=== PATIENT | female | born 1955 | race Caucasian/White ===

== ENCOUNTER → 2016-11-12 | Outpatient (CLI) | payer BC ==
[2016-11-12 12:01] LABS: Anion Gap 12 mmol/L; Blood Urea Nitrogen 18 mg/dL (7-17); Carbon Dioxide 28 mmol/L (22-30); Chloride 104 mmol/L (98-107); Magnesium 1.9 mg/dL (1.6-2.3); Non-African American GFR(MDRD) >60 (>60 ml/min/1.73 sqM); Potassium 5.3 mmol/L (3.5-5.1); Sodium 144 mmol/L (137-145)
== END | disposition home or self-care (01) ==
LOC: LABWHC1 11:18
PROVIDERS: ATTEND Internal Medicine Clinical Cardiac Electrophysiology
DX: I48.2 Chronic atrial fibrillation (principal); Z51.81 Encounter for therapeutic drug level monitoring
CPT/HCPCS: 36415; 80051; 82565; 83735; 84520

== ENCOUNTER → 2016-12-16 | Outpatient (CLI) | payer BC ==
[2016-12-16 12:54] LABS: Anion Gap 11 mmol/L; Blood Urea Nitrogen 17 mg/dL (7-17); Calcium 9.9 mg/dL (8.4-10.2); Carbon Dioxide 27 mmol/L (22-30); Chloride 103 mmol/L (98-107); Glucose 108 mg/dL (74-99); Non-African American GFR(MDRD) >60 (>60 ml/min/1.73 sqM); Potassium 5.1 mmol/L (3.5-5.1); Sodium 141 mmol/L (137-145)
== END ==
LOC: LABWHC1 11:10
PROVIDERS: ATTEND Internal Medicine Clinical Cardiac Electrophysiology
DX: I48.91 Unspecified atrial fibrillation (principal); Z51.81 Encounter for therapeutic drug level monitoring; Z79.899 Other long term (current) drug therapy
CPT/HCPCS: 36415; 80048

== ENCOUNTER → 2017-04-28 | Outpatient (CLI) | payer BC ==
[2017-04-28 11:15] LABS: Anion Gap 10 mmol/L; Blood Urea Nitrogen 16 mg/dL (7-17); Calcium 9.5 mg/dL (8.4-10.2); Carbon Dioxide 29 mmol/L (22-30); Chloride 104 mmol/L (98-107); Cholesterol 164 mg/dL (<200); Glucose 104 mg/dL (74-99); HDL Cholesterol 40 mg/dL (40-60); Magnesium 1.8 mg/dL (1.6-2.3); Non-African American GFR(MDRD) >60 (>60 ml/min/1.73 sqM); Potassium 5.3 mmol/L (3.5-5.1); Sodium 143 mmol/L (137-145)
== END | disposition home or self-care (01) ==
LOC: LABWHC1 10:25
PROVIDERS: ATTEND Internal Medicine Clinical Cardiac Electrophysiology
DX: I48.91 Unspecified atrial fibrillation (principal); I10 Essential (primary) hypertension
CPT/HCPCS: 36415; 80048; 80061; 83735

== ENCOUNTER → 2017-11-04 | Outpatient (CLI) | payer BC ==
[2017-11-04 11:19] LABS: Anion Gap 10 mmol/L; Blood Urea Nitrogen 17 mg/dL (7-17); Calcium 9.9 mg/dL (8.4-10.2); Carbon Dioxide 30 mmol/L (22-30); Chloride 103 mmol/L (98-107); Glucose 108 mg/dL (74-99); Magnesium 1.9 mg/dL (1.6-2.3); Potassium 5.3 mmol/L (3.5-5.1); Sodium 143 mmol/L (137-145)
== END | disposition home or self-care (01) ==
LOC: LABWHC1 10:37
PROVIDERS: ATTEND Internal Medicine Clinical Cardiac Electrophysiology
DX: I48.91 Unspecified atrial fibrillation (principal)
CPT/HCPCS: 36415; 80048; 83735; 84443

== ENCOUNTER → 2018-06-15 | Outpatient (CLI) | payer MEDICARE ==
[2018-06-15 11:59] LABS: Anion Gap 7 mmol/L; Blood Urea Nitrogen 19 mg/dL (7-17); Calcium 9.6 mg/dL (8.4-10.2); Carbon Dioxide 30 mmol/L (22-30); Chloride 104 mmol/L (98-107); Glucose 115 mg/dL (74-99); Potassium 5.3 mmol/L (3.5-5.1); Sodium 141 mmol/L (137-145)
== END | disposition home or self-care (01) ==
LOC: LABWHC1 10:32
PROVIDERS: ATTEND Internal Medicine Clinical Cardiac Electrophysiology
DX: I48.2 Chronic atrial fibrillation (principal); Z51.81 Encounter for therapeutic drug level monitoring
CPT/HCPCS: 36415; 80048; 83735

== ENCOUNTER → 2018-09-29 | Outpatient (CLI) | payer MEDICARE ==
[2018-09-29 12:53] LABS: HCT 44.1 % (34.0-46.0); HGB 14.3 gm/dL (11.4-16.0); MCH 27.9 pg (25.0-35.0); MCHC 32.4 g/dL (31.0-37.0); MCV 86.2 fL (80.0-100.0); Mean Platelet Volume 7.6; Platelet Count 255 k/uL (150-450); RBC 5.12 m/uL (3.80-5.40); RDW 13.4 % (11.5-15.5); WBC 8.2 k/uL (3.8-10.6)
[2018-09-29 13:04] LABS: Anion Gap 7 mmol/L; Blood Urea Nitrogen 21 mg/dL (7-17); Carbon Dioxide 29 mmol/L (22-30); Chloride 105 mmol/L (98-107); Glucose 104 mg/dL (74-99); Potassium 5.1 mmol/L (3.5-5.1); Sodium 141 mmol/L (137-145)
== END | disposition home or self-care (01) ==
LOC: LABPAT 11:24
PROVIDERS: ATTEND Internal Medicine Clinical Cardiac Electrophysiology
DX: Z01.812 Encounter for preprocedural laboratory examination (principal); I48.0 Paroxysmal atrial fibrillation; I27.20 Pulmonary hypertension, unspecified
CPT/HCPCS: 36415; 80051; 82565; 82947; 84520; 85027

== ENCOUNTER 2018-10-12 05:50 | Day surgery (SDC) | payer MEDICARE ==
[2018-10-08 15:06] VITALS: BMI 36.0
[2018-10-12] MEDS ORDERED: fentaNYL (PF) 50 MCG/ML 2 ML AMP IV PRN (05:54)
[2018-10-12] MEDS ORDERED: LACTATED RINGERS 1,000 ML IV SCH (05:54)
[2018-10-12] MEDS ORDERED: MIDAZOLAM (PF) 2 MG/2 ML VIAL IV PRN (05:54)
[2018-10-12] MEDS ORDERED: SODIUM CHLORIDE 0.9% 1,000 ML IV SCH (05:54)
[2018-10-12] MEDS ORDERED: DEXAMETHASONE SOD PHOSPHATE 10 MG/ML 1 ML VIAL IV ONE (05:54)
[2018-10-12 06:33] LABS: INR 2.4 (<1.2); Prothrombin Time 23.4 sec (9.0-12.0)
[2018-10-12] MEDS ORDERED: SUCCINYLCHOLINE CHLORIDE 100 MG/5 ML SYR IV ONE (07:18)
[2018-10-12] MEDS ORDERED: ROCURONIUM BROMIDE 10 MG/ML 10 ML VIAL IV ONE (07:18)
[2018-10-12] MEDS ORDERED: NEOSTIGMINE 1 MG/ML 10 ML VIAL ONE (07:18)
[2018-10-12] MEDS ORDERED: ePHEDrine SULFATE/0.9% NACL/PF 50 MG/5 ML SYRINGE IV ONE (07:18)
[2018-10-12] MEDS ORDERED: LIDOCAINE 1% INJ 10MG/ML (20 ML MDV) ONE (07:18)
[2018-10-12] MEDS ORDERED: ISOPROTERENOL 250 MCG/1.25 ML SYR IV ONE (07:18)
[2018-10-12] MEDS ORDERED: IV FLUID CONTINUATION 950 ML IV ONE (07:18)
[2018-10-12] MEDS ORDERED: HEPARIN SODIUM,PORCINE 10,000 UNIT/ML 1 ML VIAL ONE (07:18)
[2018-10-12] MEDS ORDERED: FUROSEMIDE 10 MG/ML 2 ML VIAL ONE (07:18)
[2018-10-12] MEDS ORDERED: PROTAMINE SULFATE 10 MG/ML 5 ML VIAL IV ONE (07:18)
[2018-10-12] MEDS ORDERED: fentaNYL (PF) 50 MCG/ML 2 ML AMP ONE (07:18)
[2018-10-12] MEDS ORDERED: PROPOFOL 10 MG/ML 20 ML VIAL IV ONE (07:18)
[2018-10-12] MEDS ORDERED: GLYCOPYRROLATE 0.2 MG/ML 2 ML VIAL ONE (07:18)
[2018-10-12] MEDS ORDERED: MEPERIDINE 50 MG/ML SYRINGE ONE (07:18)
[2018-10-12] MEDS ORDERED: MIDAZOLAM 2 MG/2 ML VIAL ONE (07:18)
[2018-10-12] MEDS ORDERED: HEPARIN SOD,PORK IN 0.45% NACL 25,000 UNIT in 0.45% NACL 1 250ML.BAG IV ONE (08:05)
[2018-10-12] MEDS ORDERED: LIDOCAINE 1% INJ 10MG/ML (20 ML MDV) SQ ONE (08:06)
[2018-10-12] MEDS ORDERED: HEPARIN SODIUM (1,000 UNIT/ML) 1,000 UNIT in SODIUM CHLORIDE 0.9% 1,000 ML IRRIGATION ONE ×4 (08:09)
[2018-10-12] MEDS ORDERED: ACETAMINOPHEN IV (For NPO) 1,000 MG in EMPTY BAG 1 BAG IVPB ONE (11:55)
[2018-10-12] MEDS ORDERED: HYDROcodone/APAP 5-325MG 1 EACH TAB PO PRN (11:55)
--- NOTE | 2018-10-12 12:04 | P.PRLE ---
RE: Danielle Menard Dear Juan Lorenzo Derian has had breakthrough episodes of atrial fibrillation. She had 2 A. fib ablations of the [facility] almost 10 years back and since then she has been on dofetilide since she continued to have persistent atrial fibrillation. She had done very well on dofetilide but more recently I noticed that 100 her monitor she would experience breakthrough episodes of atrial fibrillation. This was a recent finding I performed a map of the left atrium and she underwent successful ablation of 2 areas which had shown recovery from previous ablations, namely the left atrial roof and the anterior of the left superior and inferior veins in the groove between the left atrial appendage and the left-sided veins. Thereafter atrial fibrillation could not be induced Hopefully she maintains sinus rhythm on dofetilide She will continue and granulation lifelong I also performed a right heart cath to measure her PA pressures since she has a past history of pulmonary hypertension. She has mildly elevated PA pressures of around 35-40 mmHg Left atrial pressure of 33 mmHg Right atrial pressures of 14 mmHg She will continue with her current medications without any changes Since she is on dofetilide she cannot be on hydrochlorothiazide or the thiazide diuretics Thank you for entrusting me with the care of the patient Warm regards Sincerely Yuri Alonzo
[2018-10-12] MEDS ORDERED: IV FLUID CONTINUATION 1,000 ML IV ONE (13:03)
--- NOTE | 2018-10-12 13:21 | CE ---
CARDIAC ELECTROPHYSIOLOGY REPORT This is a 63-year-old female with a history of persistent atrial fibrillation who has undergone 2 A fib ablations at the [facility] almost a decade back. Thereafter, she remained in atrial fibrillation and therefore I treated her with dofetilide and she has done very well for many, many years. More recently, a follow- up Holter monitor showed breakthrough episodes of atrial fibrillation and therefore I brought her in for an EP study as well as right heart catheterization since she carries a diagnosis of pulmonary hypertension. Patient was brought to the EP lab in a fasting state. Written informed consent was obtained prior to the procedure. The procedure was performed under general anesthesia. Venous sheaths were placed in the right and left femoral veins as well as an arterial sheath in the right femoral artery for continuous hemodynamic monitoring and sampling. Her vitals remained stable through the procedure. This was removed at the end of the procedure. She was in sinus rhythm at the start of the study. Sinus cycle length 908 milliseconds. KY interval 166 milliseconds, QRS 78 milliseconds, QT 434 milliseconds. The baseline AH interval 84 milliseconds. Baseline HV interval 44 milliseconds. First right heart catheterization was performed. A [place]-Lori catheter was placed in the pulmonary artery. On recovery, wedge pressure was 28/12/17 mmHg. PA pressures 39/15/26 mmHg. RV 42/7/22 mmHg. Right atrium 14/8/12 mmHg. IVC 30/9/12 mmHg. This was consistent with mild pulmonary hypertension. The catheter was removed and diagnostic and mapping EP catheters were placed. Sinus node recovery time at 600, 500 milliseconds were 1222 and 1280 milliseconds. Corresponding corrected sinus node recovery times were within normal limits. AV node Wenckebach block 370 milliseconds, VA Wenckebach block greater than 600 milliseconds. Isuprel was used for induction of atrial tachycardia and atrial fibrillation. Atrial extra stimulation was performed from the coronary sinus. Atrial fibrillation could not be induced. However, later atrial fibrillation was very easily inducible when a PentaRay catheter was placed in the left superior vein as well as when the mapping and ablation catheter was in contact with the roof of the left atrium. This induced the atrial tachycardia, however, she would degenerate the atrial tachycardia which appeared to be organized. Based on the surface leads, but intracardiac electrograms suggested that this was really atrial fibrillation. Therefore, 3D voltage map of the left atrium was performed. A PentaRay catheter was placed in the left atrium and voltage map was made. The right-sided veins were completely quiescent. The left-sided veins were also quiescent. The posterior wall was quiescent. However, the groove between the left-sided veins and the left atrial appendage showed atrial electrograms and when a brief map of the irregular atrial tachycardia was performed, the earliest activation was in this region. This corresponded to the area where there was a gap in the roof line and also where the catheter induced the atrial fibrillation. Mapping of the left atrial body suggested the roof had a gap in the mid section, but on closer examination even though the voltage was low with detailed mapping. The roof had actually recovered and contact with the ablation catheter at several sites even with very low voltage of less than 0.3 mV induced atrial fibrillation repeatedly and pressure application here resulted in termination of atrial fibrillation. Therefore, 2 areas were targeted for ablation, #1 the anterior margin of the left-sided pulmonary veins in the ridge between the left atrial appendage and the left-sided veins. RF ablation was applied here and the veins isolated antral level at the level of the ridge. Good contact force and good power was used of 35 erickson. Next a roof line somewhat anterior was made. While ablating this region, with contact atrial fibrillation was repeatedly induced and it was finally terminated once the line was complete. This line was interrogated with 100% grid and was a complete anatomic line. Mapping along the line did not reveal any further electrograms and contact in the roof area did not result in any more atrial fibrillation which was a sharp contrast before this ablation. Heparin was used through the procedure. This was stopped and catheters removed from the left atrium. Catheters were placed in the high right atrium, coronary sinus, His bundle area and the RV. VA Wenckebach block was greater than 600 milliseconds, AV node Wenckebach block 370 milliseconds, AH interval 84 milliseconds, HV interval 44 milliseconds. Sinus node recovery times were performed. Atrial extra stimulation was performed. Patient tolerated the procedure well without any acute complications. RESULT: 1. Successful re-isolation of the left-sided veins both superior and inferior along the ridge anteriorly. 2. Linear ablation in the roof of the left atrium. Atrial fibrillation could not be induced thereafter. PLAN: Continue anticoagulation, continue dofetilide. MMODL / IJN: [id number] /
[2018-10-12] MEDS: DOFETILIDE 500 MCG CAP PO SCH (17:19)
[2018-10-12] MEDS ORDERED: ACETAMINOPHEN TAB 325 MG TAB PO PRN (18:00)
[2018-10-13] MEDS: DOFETILIDE 500 MCG CAP PO SCH (05:52)
[2018-10-13] MEDS ORDERED: LISINOPRIL 20 MG TAB PO SCH (09:00)
[2018-10-13] MEDS ORDERED: METOPROLOL SUCCINATE (ER) 50 MG TAB.ER.24H PO SCH (09:00)
[2018-10-13 11:33] VITALS: BP 144/79; PULSE 70; RESP 15; TEMP 98.6
[2018-10-13] MEDS ORDERED: MAGNESIUM OXIDE 400 MG TAB PO SCH (12:00)
--- NOTE | 2018-10-13 12:32 | P.DS ---
Providers Attending physician: Yuri Alonzo Primary care physician: [facility] Course: Patient is doing very well post A. fib ablation. Mild sore throat but no swallowing difficulty no fever chills no cough expectoration no chest pain no dizziness lightheadedness no palpitations She's been ambulating in the room and into the bathroom Vitals are stable Blood pressure 147/78 mmHg pulse rate in the 70s afebrile 98.6F normal respirations Breath sounds are clear no rhonchi no crackles Heart sounds are normal normal S1 normal S2 no murmurs or gallops no rub Abdomen soft nontender Extremities warm no edema groins of healed well Impression Breakthrough episodes of atrial fibrillation on dofetilide 500 g twice daily Today her absolute QT interval less than 450 ms She underwent ablation along the anterior margin of the left pulmonary veins in between the left atrial appendage and the left pulmonary veins Atrial fibrillation was easily inducible with catheter contact in the roof. Catheter contact also terminate this atrial fibrillation Successful roofline with termination of the tachycardia and A. fib was rendered noninducible Plan continue anticoagulation lifelong continue dofetilide continue all other cardiac medications and follow-up with me in about 2 weeks Home today Patient Condition at Discharge: Stable Plan - Discharge Summary Discharge Rx Participant: Yes New Discharge Prescriptions: Continue RX: Metoprolol Succinate [Toprol XL] 50 mg PO DAILY RX: Dofetilide [Tikosyn] 500 mcg PO BID RX: Warfarin [Coumadin] 2.5 mg PO SUWETH RX: Lisinopril [Zestril] 30 mg PO DAILY RX: Magnesium Chloride [Mag64] 64 mg PO DAILY RX: Iron 28 mg PO DAILY RX: Warfarin [Coumadin] 3.75 mg PO [facility] Discharge Medication List RX: Dofetilide [Tikosyn] 500 mcg PO BID 06/12/16 [History] RX: Iron 28 mg PO DAILY 06/12/16 [History] RX: Lisinopril [Zestril] 30 mg PO DAILY 06/12/16 [History] RX: Magnesium Chloride [Mag64] 64 mg PO DAILY 06/12/16 [History] RX: Metoprolol Succinate [Toprol XL] 50 mg PO DAILY 06/12/16 [History] RX: Warfarin [Coumadin] 2.5 mg PO SUWETHFR 06/12/16 [History] RX: Warfarin [Coumadin] 3.75 mg PO TUSA 10/08/18 [History] Follow up Appointment(s)/Referral(s): Yuri Alonzo MD [STAFF PHYSICIAN] - 10/22/18 (Follow for a groin check in 1-2 weeks and follow with Dr. Adkins in about 3-4 months again) Patient Instructions/Handouts: Electrophysiology Study (DC) Activity/Diet/Wound Care/Special Instructions: Post EP study - Ablation instructions 1. Keep access sites dry for 2 days. 2. No heavy lifting or straining for 2 days. 3. Avoid bending the hips repeatedly for 2 days. 4. You may go up and down stairs slowly Call if the following is noted 1. Bleeding, increasing swelling or pain at the access sites. 2. Increasing chest discomfort, especially upon taking a deep breath. 3. Increasing shortness of breath, at rest or with exertion. 4. Undue cough / phlegm 5. Difficulty or pain while swallowing. 6. Pain or change in color in the extremities. 7. Fever, chills, rigors. 8. Increasing headache or neurologic symptoms. 9. Dizziness, fainting, palpitations Continue warfarin continue dofetilide Continue all cardiac medications unchanged Discharge Disposition: HOME SELF-CARE
[2018-10-13] MEDS ORDERED: WARFARIN 7.5 MG TAB PO SCH (18:00)
[2018-10-14] MEDS ORDERED: WARFARIN 2.5 MG TAB PO SCH (18:00)
== END 2018-10-13 12:35 | disposition home or self-care (01) ==
LOC: CATHEP 05:50 → 1SOBS 11:37 → CATHEP 10-13 12:35
PROVIDERS: ATTEND Internal Medicine Clinical Cardiac Electrophysiology
DX: I48.0 Paroxysmal atrial fibrillation (principal); I27.20 Pulmonary hypertension, unspecified; I10 Essential (primary) hypertension; I08.1 Rheumatic disorders of both mitral and tricuspid valves; G47.33 Obstructive sleep apnea (adult) (pediatric); Z88.5 Allergy status to narcotic agent; Z79.01 Long term (current) use of anticoagulants; Z79.899 Other long term (current) drug therapy; Z88.8 Allergy status to other drugs, medicaments and biological substances
CPT/HCPCS: 93656; 93451; 93623; 93662; 93613; 85347; 85610; C1769 ×6; C1894 ×2; C1730; C1731; C1759; C1893; C1732; J2250; J2720; J1644 ×3; J1940; J2710; J2175; J2001; J3010; J0330; J2704

== ENCOUNTER → 2018-12-24 | Outpatient (CLI) | payer MEDICARE ==
--- NOTE | 2018-12-25 09:27 | MM ---
Reason for exam: screening (asymptomatic). Last mammogram was performed 7 years and 2 months ago. History: Patient is postmenopausal. Family history of breast cancer in aunt. Took estrogen for 1 year. Took progesterone for 1 year. Physical Findings: A clinical breast exam by your physician is recommended on an annual basis and results should be correlated with mammographic findings. MG 3D Screening Mammo W/Cad Bilateral CC and MLO view(s) were taken. Prior study comparison: November 05, 2011, bilateral digital screening mammo w/CAD. June 07, 2010, bilateral digital screening mammogram. The breast tissue is heterogeneously dense. This may lower the sensitivity of mammography. Benign appearing bilateral calcifications. No suspicious abnormality. No significant changes when compared with prior studies. ASSESSMENT: Benign, BI-RAD 2 RECOMMENDATION: Routine screening mammogram of both breasts in 1 year.
== END ==
LOC: RADMAMWWP 14:19
PROVIDERS: ATTEND Internal Medicine
DX: Z12.31 Encounter for screening mammogram for malignant neoplasm of breast (principal)
CPT/HCPCS: 77063; 77067

== ENCOUNTER → 2019-02-08 | Outpatient (CLI) | payer MEDICARE ==
[2019-02-08 18:24] LABS: Anion Gap 5.1 mmol/L (4.00-12.00); Calcium 9.5 mg/dL (8.7-10.3); Carbon Dioxide 25.9 mmol/L (21.6-31.8); Magnesium 1.9 mg/dL (1.5-2.4); Potassium 4.3 mmol/L (3.5-5.5)
== END | disposition home or self-care (01) ==
LOC: LABWHC1 11:26
PROVIDERS: ATTEND Nurse Practitioner Adult Health
DX: I10 Essential (primary) hypertension (principal)
CPT/HCPCS: 36415; 80048; 83735

== ENCOUNTER → 2019-08-02 | Outpatient (CLI) | payer MEDICARE ==
[2019-08-02 15:50] LABS: African American GFR (CKD) 104.6 (60.0-200.0); Anion Gap 6.3 mmol/L (4.00-12.00); BUN/Creat Ratio 25.71 Ratio (12.00-20.00); Calcium 10.1 mg/dL (8.7-10.3); Carbon Dioxide 29.7 mmol/L (21.6-31.8); Magnesium 1.8 mg/dL (1.5-2.4); Non-African American GFR(CKD) 90.3 (60.0-200.0); Potassium 5.4 mmol/L (3.5-5.5)
== END | disposition home or self-care (01) ==
LOC: LABWHC1 10:20
PROVIDERS: ATTEND Physician Assistant
DX: I48.91 Unspecified atrial fibrillation (principal)
CPT/HCPCS: 36415; 80048; 83735

== ENCOUNTER 2019-12-23 05:51 | Day surgery (SDC) | payer MEDICARE ==
[2019-12-20 10:35] VITALS: BMI 35.8
[~2019-12-23 05:51] MED LIST: LACTATED RINGERS 1,000 ML IV SCH; SODIUM CHLORIDE 0.9% 1,000 ML IV SCH
[2019-12-23 06:36] LABS: Basophils % (A) 0 %; Eosinophils # (A) 0.1 k/uL (0-0.7); Eosinophils % (A) 1 %; HCT 42.8 % (34.0-46.0); HGB 14.2 gm/dL (11.4-16.0); Lymphocytes # (A) 2.5 k/uL (1.0-4.8); Lymphocytes % (A) 25 %; MCHC 33.2 g/dL (31.0-37.0); MCV 84.3 fL (80.0-100.0); Mean Platelet Volume 7.9; Monocytes # (A) 0.7 k/uL (0-1.0); Monocytes % (A) 6 %; Neutrophils # (A) 6.5 k/uL (1.3-7.7); Neutrophils % (A) 65 %; Platelet Count 251 k/uL (150-450); RBC 5.08 m/uL (3.80-5.40); RDW 13.1 % (11.5-15.5); WBC 10.1 k/uL (3.8-10.6)
[2019-12-23 06:43] VITALS: RESP 16; TEMP 97.9
[2019-12-23 06:47] LABS: African American GFR (CKD) >90 (>60 ml/min/1.73 sqM); Anion Gap 10 mmol/L; Blood Urea Nitrogen 19 mg/dL (7-17); Calcium 9.4 mg/dL (8.4-10.2); Carbon Dioxide 23 mmol/L (22-30); Chloride 107 mmol/L (98-107); Glucose 136 mg/dL (74-99); Non-African American GFR(CKD) >90 (>60 ml/min/1.73 sqM); Potassium 4.2 mmol/L (3.5-5.1); Sodium 140 mmol/L (137-145)
[2019-12-23 06:56] LABS: INR 2.2 (<1.2); Prothrombin Time 21.5 sec (9.0-12.0)
[2019-12-23] MEDS ORDERED: PROPOFOL 10 MG/ML 20 ML VIAL IV ONE (06:59)
[2019-12-23] MEDS ORDERED: HYDROmorphone (PF) 1 MG/ML ONE (06:59)
[2019-12-23] MEDS ORDERED: MIDAZOLAM 2 MG/2 ML VIAL ONE (06:59)
[2019-12-23] MEDS ORDERED: fentaNYL (PF) 50 MCG/ML 2 ML AMP ONE (06:59)
[2019-12-23] MEDS ORDERED: ceFAZolin 1,000 MG in SODIUM CHLORIDE 0.9% IRRIGATIO 250 ML IRRIGATION ONE (07:00)
[2019-12-23] MEDS ORDERED: IOPAMIDOL-370 50ML BTL INJ ONE (07:15)
[2019-12-23] MEDS ORDERED: LIDOCAINE 1% INJ 10MG/ML (20 ML MDV) ONE ×2 (07:25→09:33)
[2019-12-23] MEDS ORDERED: LIDOCAINE 1% INJ 10MG/ML (20 ML MDV) SQ ONE ×4 (07:45→09:34)
[2019-12-23] MEDS ORDERED: SODIUM CHLORIDE 0.9% 500 ML 500 ML IV ONE (09:43)
[2019-12-23] MEDS ORDERED: ACETAMINOPHEN TAB 325 MG TAB PO PRN (10:06)
[2019-12-23] MEDS ORDERED: ACETAMINOPHEN IV (For NPO) 1,000 MG in EMPTY BAG 1 BAG IVPB ONE (10:30)
--- NOTE | 2019-12-23 11:02 | CE ---
CARDIAC ELECTROPHYSIOLOGY REPORT Danielle Menard, a 64-year-old female with tachybrady syndrome with atrial fibrillation with RVR and with long sinus pauses up to 6 to 7 seconds with associated dizziness and vision changes. She complained of palpitations during atrial fibrillation with RVR. She has failed dofetilide. She has undergone atrial fibrillation ablations, two at [facility] and one at [facility]. Patient was brought in for a biventricular pacemaker implantation. She has normal LV function, but her RVSP is elevated. She has moderate MR. Please see full dictation of the right heart catheterization performed prior to starting the pacemaker implant separately. The left pectoral area was prepped and draped as per protocol and 1% lidocaine was used for local anesthesia. IV antibiotics were administered. A 4 cm incision was made parallel to the deltopectoral groove, about 1.5 cm medial to it. The incision was carried down to the level of the pectoralis muscle. A subfascial pocket was made. Hemostasis was assured. The left axillary vein was accessed at 3 separate points under fluoroscopy and via appropriately-sized introducer sheaths. Three leads were positioned. The atrial lead was model #5076, 52 cm length and serial #[id number]. The patient was in atrial fibrillation during the implant. Pacing impedance 627 ohms and 0.75 V. Ten volt test is negative. This was a screw-in lead and it screwed in the right atrial appendage and the lead was stable. The RV lead was a passive lead Medtronic model #4074, 58 cm in length and serial #[id number]. This was positioned in the RV apex. R-waves 17 mV, pacing impedance 1216 ohms, pacing threshold 0.5 V at 0.4 milliseconds. Ten volt test is negative. The third lead was a Medtronic model #3830, 69 cm in length and serial #[id number]. This was screwed in the His bundle area. Nonselective pacing was observed. QRS width of about 103 to 108 milliseconds with selective pacing at very low thresholds, very low outputs. Loss of capture occurred at 0.6 V at 1 millisecond. Pacing impedance 770 ohms. The leads are secured to the underlying pectoralis fascia using 2 nonabsorbable sutures. Pocket was irrigated with antibiotic solution. Leads were connected to the generator (Medtronic HISTOTECHNOLOGIST-P, [id number] Debbie MRI. The leads and generator were then placed in subfascial pocket. The wound was closed in 3 layers and dressed per protocol. LEFT UPPER EXTREMITY VENOGRAM: Prior to starting the implant, a venogram of the left upper extremity was performed and 15 mL of dye was injected which opacified the axillary vein and subclavian veins very well and they were found to be patent widely patent. RIGHT HEART CATHETERIZATION: The patient has pulmonary hypertension with PA pressures in the mid 50s prior to starting the implant. The right heart catheterization was performed with a [place]-Lori catheter via the subclavian vein. When access was obtained, a sheath was placed and [place]-Lori catheter was placed in the right heart. The PA pressures were 66/10/40 mmHg. Pulmonary capillary wedge pressures were 35/6/17 mmHg. The central PA pressures are 68/9/39 mmHg. RV pressures of 65/1/29 mmHg. RA pressures were 16/2/10 mmHg. Following this, the [place]-Lori catheter was removed and a biventricular pacemaker was implanted. The patient tolerated the procedure well without any acute complications. PLAN: 1. One dose of IV antibiotics at 1:30 p.m. today, chest x-ray and discharge home today. 2. Plan is to stop dofetilide since she has failed dofetilide now. 3. Start flecainide 100 mg twice daily. LV function was normal. 4. Start verapamil 180 mg p.o. daily. 5. Stop metoprolol. 6. Continue anticoagulation and other medications including lisinopril. Next week a 12-lead ECG will be performed on flecainide. The dose of verapamil will be increased according to the ventricular rates during atrial fibrillation. In about 2 to 3 months once the COVID situation has resolved, then a CHARLENE will be performed to assess her mitral valve. MMODL / IJN: [id number] /
[2019-12-23 12:54] VITALS: BP 114/58; PULSE 73
--- NOTE | 2019-12-23 13:30 | XR ---
EXAMINATION TYPE: XR chest 1V portable DATE OF EXAM: 12/23/2019 Comparison: 12/13/2011 Clinical History: 64-year-old female Lead placement check Findings: Left anterior chest wall pacemaker generator with right atrial and right ventricular leads. There see ms to be a third lead is well and this should be correlated clinically, somewhat short for the typica l appearance of a coronary sinus lead. Heart borderline in size. Mild interstitial prominence is unchanged. No cam consolidation or pleura l effusion. Impression: 1. Left anterior chest wall pacemaker generator. Right atrial and right ventricular leads are seen. T here seems to be a third lead which should be correlated clinically, somewhat short for the typical a ppearance of a coronary sinus lead. 2. Borderline heart size and chronic appearing changes.
== END 2019-12-23 14:20 | disposition home or self-care (01) ==
LOC: CATHEP 05:51
PROVIDERS: ATTEND Internal Medicine Clinical Cardiac Electrophysiology
DX: I49.5 Sick sinus syndrome (principal); I48.0 Paroxysmal atrial fibrillation; I27.20 Pulmonary hypertension, unspecified; I42.9 Cardiomyopathy, unspecified; I10 Essential (primary) hypertension; I34.0 Nonrheumatic mitral (valve) insufficiency; Z79.01 Long term (current) use of anticoagulants; Z79.899 Other long term (current) drug therapy; Z88.5 Allergy status to narcotic agent; Z98.890 Other specified postprocedural states
CPT/HCPCS: 93451; 33225; 33208; 80048; 85025; 85610; 71045; C1769 ×4; C1892; C1898; C2621; J2250; J0690 ×2; J2001; J3010; J1170; J0131; J2704; Q9967

== ENCOUNTER → 2021-05-18 | Outpatient (CLI) | payer MEDICARE ==
--- NOTE | 2021-05-21 11:18 | MM ---
Reason for exam: screening (asymptomatic). Last mammogram was performed 2 years and 5 months ago. History: Patient is postmenopausal. Family history of breast cancer in aunt. Took estrogen for 1 year. Took progesterone for 1 year. Physical Findings: A clinical breast exam by your physician is recommended on an annual basis and results should be correlated with mammographic findings. MG 3D Screening Mammo W/Cad Bilateral CC and MLO view(s) were taken. Prior study comparison: December 24, 2018, bilateral MG 3d screening mammo w/cad. There are scattered fibroglandular densities. There are benign appearing round, linear calcifications bilaterally. There is no discrete abnormality. Left axillary pacemaker redemonstrated. ASSESSMENT: Benign, BI-RAD 2 RECOMMENDATION: Routine screening mammogram of both breasts in 1 year.
== END | disposition home or self-care (01) ==
LOC: RADMAMWWP 10:50
PROVIDERS: ATTEND Internal Medicine
DX: Z12.31 Encounter for screening mammogram for malignant neoplasm of breast (principal); Z78.0 Asymptomatic menopausal state; Z80.3 Family history of malignant neoplasm of breast
CPT/HCPCS: 77063; 77067

== ENCOUNTER → 2021-11-19 | Outpatient (CLI) | payer MEDICARE ==
[2021-11-19 14:38] LABS: Basophils # (A) 0.05 X 10*3/uL (0.00-0.10); Basophils % (A) 0.6 %; Eosinophils # (A) 0.14 X 10*3/uL (0.04-0.35); Eosinophils % (A) 1.6 %; HCT 42.9 % (37.2-46.3); HGB 13.2 g/dL (12.0-15.0); Immature Grans, Automated 0.4 %; Lymphocytes # (A) 2.17 X 10*3/uL (0.90-5.00); Lymphocytes % (A) 24.4 %; MCH 26.9 pg (27.0-32.0); MCHC 30.8 g/dL (32.0-37.0); MCV 87.6 fL (80.0-97.0); Mean Platelet Volume 11.8 fL (9.5-12.2); Monocytes # (A) 0.81 X 10*3/uL (0.20-1.00); Monocytes % (A) 9.1 %; NRBC Per 100 WBC 0 /100 WBCS (0.0-0.0); Neutrophils # (A) 5.69 X 10*3/uL (1.80-7.70); Neutrophils % (A) 63.9 %; Platelet Count 174 X 10*3/uL (140-440); RDW 13.7 % (11.5-14.5)
[2021-11-19 14:45] LABS: Anion Gap 11.6 mmol/L (10.00-18.00); Carbon Dioxide 25.2 mmol/L (20.0-27.5); Potassium 5.2 mmol/L (3.5-5.5)
== END | disposition home or self-care (01) ==
LOC: LABPAT 10:24
PROVIDERS: ATTEND Orthopaedic Surgery
DX: Z01.812 Encounter for preprocedural laboratory examination (principal); M23.91 Unspecified internal derangement of right knee
CPT/HCPCS: 80051; 85025

== ENCOUNTER 2021-12-06 07:48 | Day surgery (SDC) | payer MEDICARE ==
[2021-12-04 10:31] VITALS: BMI 38.3
--- NOTE | 2021-12-05 21:08 | HP ---
HISTORY AND PHYSICAL REASON FOR ADMISSION: Surgery scheduled for 12/06/2021 HISTORY OF PRESENT ILLNESS: Danielle Menard is a 66-year-old patient seen with progressive right knee pain. We discussed options for treatment. She elected to proceed with right knee arthroscopy. Consent obtained. Medical clearance was provided by Dr. Mcpherson. Cardiac clearance by Dr. Alonzo. PAST MEDICAL HISTORY: Hypertension, cardiovascular disease. PAST SURGICAL HISTORY: section, cholecystectomy, tonsillectomy, hysterectomy. MEDICATIONS: Coumadin, lisinopril, Tylenol, verapamil. ALLERGIES: CODEINE. SOCIAL HISTORY: She denies tobacco use. PHYSICAL EVALUATION OF THE RIGHT KNEE: Range of motion is zero to 130. Mild effusion. Tenderness medial joint line. Positive medial Kaila's. Ligaments stable. Hip rotation without pain. Distal neurovascular exam intact. RADIOGRAPHS: Radiographs of the right knee revealed osteoarthritic changes. IMPRESSION: 1. Internal derangement of right knee with meniscal tear. 2. Hypertension. 3. Cardiovascular disease. PLAN: Right knee arthroscopy with partial medial meniscectomy and debridement. Surgery is 12/06/2021. MMODL / IJN: [id number] /
[~2021-12-06 07:48] MED LIST changes: +DEXAMETHASONE SOD PHOSPHATE 4 MG/ML 1 ML VIAL IV ONE; +ONDANSETRON 4 MG/2 ML VIAL IVP ONE; -SODIUM CHLORIDE 0.9% 1,000 ML IV SCH; +fentaNYL (PF) 50 MCG/ML 2 ML AMP IV PRN
[2021-12-06] MEDS ORDERED: LIDOCAINE 1% (10MG/ML) FOR IV START INTRADERMA ONE (09:07)
[2021-12-06 09:24] LABS: Basophils % (A) 0 %; Eosinophils # (A) 0.2 k/uL (0-0.7); Eosinophils % (A) 2 %; HCT 42.8 % (34.0-46.0); HGB 13.9 gm/dL (11.4-16.0); Lymphocytes # (A) 2.4 k/uL (1.0-4.8); Lymphocytes % (A) 26 %; MCHC 32.4 g/dL (31.0-37.0); MCV 86.2 fL (80.0-100.0); Monocytes # (A) 0.6 k/uL (0-1.0); Monocytes % (A) 6 %; Neutrophils # (A) 6.1 k/uL (1.3-7.7); Neutrophils % (A) 64 %; Platelet Count 302 k/uL (150-450); RBC 4.97 m/uL (3.80-5.40); WBC 9.5 k/uL (3.8-10.6)
[2021-12-06] MEDS ORDERED: LIDOCAINE 1% INJ 10MG/ML (20 ML MDV) ONE (09:25)
[2021-12-06] MEDS ORDERED: PROPOFOL 10 MG/ML 20 ML VIAL IV ONE (09:25)
[2021-12-06] MEDS ORDERED: fentaNYL (PF) 50 MCG/ML 2 ML AMP ONE (09:25)
[2021-12-06 09:31] LABS: Prothrombin Time 10.5 sec (9.0-12.0)
[2021-12-06] MEDS ORDERED: BUPIVACAIN-EPI 0.25%-1:200,000 30 ML VIAL INTRAARTIC ONE (09:31)
[2021-12-06 10:18] VITALS: TEMP 97
--- NOTE | 2021-12-06 10:20 | P.OP ---
Date of Procedure: 12/06/21 Preoperative Diagnosis: Internal derangement right knee Postoperative Diagnosis: 1. Tear medial and lateral meniscus right 2. Grade 4 chondromalacia lateral femoral condyle right knee 3. Reactive synovitis medial, lateral and suprapatellar compartments right knee 4. Loose body right knee Procedure(s) Performed: 1. Arthroscopic partial medial and lateral meniscectomy right knee 2. Arthroscopic microfracture lateral femoral condyle right knee 3. Arthroscopic partial synovectomy medial, lateral and suprapatellar compartments right knee 4. Arthroscopic removal loose body right knee Anesthesia: MIRANDA, local Surgeon: Evert Gu Estimated Blood Loss (ml): 5 Pathology: none sent Condition: stable Disposition: PACU Indications for Procedure: 66-year-old patient seen with progressive right knee pain. After treatment options were discussed, she elected to proceed with arthroscopy. Operative Findings: See description of procedure Description of Procedure: Patient was taken to the operative suite. Patient underwent a general anesthetic by the department of anesthesia. Patient was given preoperative antibiotics. The right lower extremity was placed in a well-padded arthroscopic leg henry. The right leg was prepped and draped in the normal sterile orthopedic fashion. A lateral parapatellar and suprapatellar incision was made. Trochars were inserted. Arthroscopy was initiated. Suprapatellar pouch revealed diffuse thick reactive synovitis. The patellofemoral joint appeared articulate congruently. There was grade 4 chondromalacia involving most of the femoral sulcus with large areas of exposed bone. The scope was guided into the medial gutter. No loose bodies or plica were identified. The scope was then guided into the medial compartment. A medial parapatellar incision was made. Trocar inserted followed by probe. There was a complex tear involving the posterior horn medial meniscus. There were grade 2 chondromalacia changes of the medial femoral condyle. There was thick reactive synovitis anteriorly. I performed a partial medial meniscectomy getting down to stable meniscal tissue. I performed a partial synovectomy decompressing the thick reactive synovitis anteriorly. The residual meniscus was probed and was found to be stable. There was good decompression of the synovitis. Scope and probe were then guided into the intercondylar notch. Cruciates were identified, probed and found to be stable. The scope and probe were then guided into lateral compartment. There was a complex tear involving the mid body and posterior horn lateral meniscus. There was thick reactive synovitis anteriorly. I noted a loose body in the undersurface of the posterior meniscus lateral compartment. I now introduced loose body forceps and remove that loose body without difficulty. We noted an area of grade 4 chondromalacia lateral femoral condyle with some diffuse osteochondral flap tears. I performed a partial lateral meniscectomy getting down to stable meniscal tissue. I performed a chondroplasty lateral femoral condyle getting down to stable ostial I performed a partial synovectomy decompressing the thick reactive synovitis. The residual meniscus was probed and was found to be stable. There was good decompression of synovitis. I again noted areas exposed bone lateral femoral condyle. I performed a microfracture set area penetrating the bone with resultant bleeding at the microfracture site. I again probed the residual osteochondral surface and it was stable. The scope was in guided back into the suprapatellar compartment. I introduced a motorized shaver into the suprapatellar compartment. I debrided some piecemeal fragments of meniscus I encountered. I performed a partial synovectomy. Shaver was now removed. There was good decompression of synovitis. I now took one more look around the entire knee, no residual debris. Instruments were now removed from the joint. The joint was infiltrated with .25% Marcaine. Steri-Strips were applied to the portal sites. Sterile dressings were applied. The patient was placed into a RIKKI hose. No tourniquet was utilized. The patient was awakened, transferred to a bed and taken to recovery stable satisfactory condition.
[2021-12-06 11:34] VITALS: BP 133/60; PULSE 75; RESP 15
== END 2021-12-06 11:50 | disposition home or self-care (01) ==
LOC: OR 07:48
PROVIDERS: ATTEND Orthopaedic Surgery
DX: M23.221 Derangement of posterior horn of medial meniscus due to old tear or injury, right knee (principal); M23.251 Derangement of posterior horn of lateral meniscus due to old tear or injury, right knee; M94.261 Chondromalacia, right knee; M65.861 Other synovitis and tenosynovitis, right lower leg; M23.41 Loose body in knee, right knee; I25.10 Atherosclerotic heart disease of native coronary artery without angina pectoris; I10 Essential (primary) hypertension; M19.90 Unspecified osteoarthritis, unspecified site; Z98.891 History of uterine scar from previous surgery; Z90.49 Acquired absence of other specified parts of digestive tract; Z90.710 Acquired absence of both cervix and uterus; Z98.890 Other specified postprocedural states; I48.91 Unspecified atrial fibrillation; Z79.01 Long term (current) use of anticoagulants; Z79.899 Other long term (current) drug therapy; Z95.810 Presence of automatic (implantable) cardiac defibrillator; Z88.5 Allergy status to narcotic agent
CPT/HCPCS: 85025; 85610; 29880; 29879; J1100; J0690; J2405; J2001; J3010; J2704

== ENCOUNTER → 2022-06-19 | Outpatient (CLI) | payer MEDICARE ==
--- NOTE | 2022-06-20 09:21 | MM ---
Reason for Exam: Screening (asymptomatic). Last mammogram was performed 1 year(s) and 1 month(s) ago. Patient History: Menarche at age 11. First Full-Term at age 21. Left ovary removed at age 51. Right ovary removed at age 51. Hysterectomy at age 51. Postmenopausal. Patient used Estrogen for 1 year. Patient used Progesterone for 1 year. Maternal aunt had breast cancer. Risk Values: Merline 5 year model risk: 1.5%. NCI Lifetime model risk: 4.8%. Prior Study Comparison: 11/05/2011 Bilateral Screening Mammogram, [facility]. 12/24/2018 Bilateral Screening Mammogram, [facility]. 05/18/2021 Bilateral Screening Mammogram, [facility]. Tissue Density: There are scattered fibroglandular densities. Findings: Analyzed By CAD. There is no suspicious group of microcalcifications within either breast. Benign calcifications within both breasts. Focal asymmetry within the left breast retroareolar region. Overall Assessment: Incomplete: need additional imaging evaluation, BI-RAD 0 Management: Diagnostic Mammogram of the left breast. A clinical breast exam by your physician is recommended on an annual basis and results should be correlated with mammographic findings. [facility] will attempt to contact patient to return for supplemental views and ultrasound if indicated. Electronically signed and approved by: Merritt Ramirez D.O.
== END | disposition home or self-care (01) ==
LOC: RADMAMWWP 12:21
PROVIDERS: ATTEND Internal Medicine
DX: Z12.31 Encounter for screening mammogram for malignant neoplasm of breast (principal); Z78.0 Asymptomatic menopausal state; Z80.3 Family history of malignant neoplasm of breast; Z90.721 Acquired absence of ovaries, unilateral
CPT/HCPCS: 77063; 77067

== ENCOUNTER → 2022-06-26 | Outpatient (CLI) | payer MEDICARE ==
--- NOTE | 2022-06-26 10:42 | MM ---
Reason for Exam: Additional evaluation requested from abnormal screening. Last screening mammogram was performed less than 1 month ago. Patient History: Menarche at age 11. First Full-Term at age 21. Left ovary removed at age 51. Right ovary removed at age 51. Hysterectomy at age 51. Postmenopausal. Patient used Estrogen for 1 year. Patient used Progesterone for 1 year. Maternal aunt had breast cancer, age 40. Risk Values: Merline 5 year model risk: 1.5%. NCI Lifetime model risk: 4.8%. Prior Study Comparison: 12/24/2018 Bilateral Screening Mammogram, [facility]. 05/18/2021 Bilateral Screening Mammogram, [facility]. 06/19/2022 Bilateral MG 3D screening mammo w/cad, [facility]. Tissue Density: Left: There are scattered fibroglandular densities. Findings: Analyzed By CAD. The focal asymmetry within the left breast retroareolar region does not persist with compression. Benign-appearing calcifications within left breast. Overall Assessment: Benign, BI-RAD 2 Management: Screening Mammogram of both breasts in 1 year. A clinical breast exam by your physician is recommended on an annual basis and results should be correlated with mammographic findings. This exam should not preclude additional follow-up of suspicious palpable abnormalities. Results were given to the patient verbally at the time of exam. Electronically signed and approved by: Merritt Ramirez D.O.
--- NOTE | 2022-06-26 10:42 | MM ---
Reason for Exam: Additional evaluation requested from abnormal screening. Last screening mammogram was performed less than 1 month ago. Patient History: Menarche at age 11. First Full-Term at age 21. Left ovary removed at age 51. Right ovary removed at age 51. Hysterectomy at age 51. Postmenopausal. Patient used Estrogen for 1 year. Patient used Progesterone for 1 year. Maternal aunt had breast cancer, age 40. Risk Values: Merline 5 year model risk: 1.5%. NCI Lifetime model risk: 4.8%. Prior Study Comparison: 12/24/2018 Bilateral Screening Mammogram, [facility]. 05/18/2021 Bilateral Screening Mammogram, [facility]. 06/19/2022 Bilateral MG 3D screening mammo w/cad, [facility]. Tissue Density: Left: There are scattered fibroglandular densities. Findings: Analyzed By CAD. The focal asymmetry within the left breast retroareolar region does not persist with compression. Benign-appearing calcifications within left breast. Overall Assessment: Benign, BI-RAD 2 Management: Screening Mammogram of both breasts in 1 year. A clinical breast exam by your physician is recommended on an annual basis and results should be correlated with mammographic findings. This exam should not preclude additional follow-up of suspicious palpable abnormalities. Results were given to the patient verbally at the time of exam. Electronically signed and approved by: Merritt Ramirez D.O.
== END | disposition home or self-care (01) ==
LOC: RADMAMWWP 10:05
PROVIDERS: ATTEND Internal Medicine
DX: R92.8 Other abnormal and inconclusive findings on diagnostic imaging of breast (principal); Z78.0 Asymptomatic menopausal state; Z80.3 Family history of malignant neoplasm of breast
CPT/HCPCS: 77065; G0279; 77061

== ENCOUNTER → 2022-08-08 | Outpatient (CLI) | payer MEDICARE ==
[2022-08-08 18:41] LABS: African American GFR (CKD) 79.6 (60.0-200.0); Anion Gap 10.1 mmol/L (10.00-18.00); BUN/Creat Ratio 26.07 Ratio (12.00-20.00); Blood Urea Nitrogen 22.5 mg/dL (9.0-27.0); Carbon Dioxide 27.8 mmol/L (20.0-27.5); Magnesium 2.2 mg/dL (1.5-2.4); Non-African American GFR(CKD) 68.6 (60.0-200.0); Potassium 4.5 mmol/L (3.5-5.5)
== END | disposition home or self-care (01) ==
LOC: LABWHC1 11:42
PROVIDERS: ATTEND Internal Medicine Clinical Cardiac Electrophysiology
DX: I10 Essential (primary) hypertension (principal)
CPT/HCPCS: 36415; 80048; 83735

== ENCOUNTER → 2022-11-20 | Outpatient (CLI) | payer MEDICARE ==
--- NOTE | 2022-11-20 11:29 | BD ---
EXAMINATION TYPE: Axial Bone Density DATE OF EXAM: 11/20/2022 CLINICAL HISTORY: 67 year old Female. ICD-10 CODE: N95.8 SPECIFIED MENOPAUSAL AND PERIMENOPAUSAL DIS O Height: 59.25 Weight: 205 FRAX RISK QUESTIONS: Family History (Parent hip fracture): no History of Fracture in Adulthood: no Secondary Osteoporosis: no RISK FACTORS HISTORY OF: Family History of Osteoporosis: no Active: yes Diet low in dairy products/other sources of calcium: yes Postmenopausal woman: yes MEDICATIONS: Additional Medications: yes a fib meds, iron, EXAM MEASUREMENTS: Bone mineral densitometry was performed using the [employer] System. Bone mineral density as measured about the Lumbar spine is: ----- L1-L4(G/cm2): 1.136 T Score Values are as follows: ----- L1: 0.1 ----- L2: -1.4 ----- L3: -0.4 ----- L4: 0.0 ----- L1-L4: -0.4 Z Score Values are as follows: ----- L1: 0.8 ----- L2: -0.7 ----- L3: 0.4 ----- L4: 0.7 ----- L1-L4: 0.4 Bone mineral density baseline Bone mineral density about the R hip (g/cm2): 0.811 Bone mineral density about the L hip (g/cm2): 0.895 T Score values are as follows: -----R Neck: -2.3 -----L Neck: -2.2 -----R Total: -1.6 -----L Total: -0.9 Z Score values are as follows: -----R Neck: -1.2 -----L Neck: -1.1 -----R Total: -0.8 -----L Total: -0.1 Bone mineral density baseline FRAX%s: The graph provided illustrates a 11.6% chance for a major osteoporotic fx and a 2.4% chance f or the hips probability for fx in 10 years time. IMPRESSION: Osteopenia (T Score between -2.5 and -1). There is slightly increased risk of fracture and the patient may be considered for treatment. Re-Screen 2-5 years. NOTE: T-SCORE=SD OF THE YOUNG ADULT MEAN.
== END | disposition home or self-care (01) ==
LOC: RADBDWWP 09:50
PROVIDERS: ATTEND Internal Medicine
DX: M85.89 Other specified disorders of bone density and structure, multiple sites (principal); N95.8 Other specified menopausal and perimenopausal disorders
CPT/HCPCS: 77080

== ENCOUNTER → 2023-11-26 | Outpatient (CLI) | payer MEDICARE ==
--- NOTE | 2023-11-27 07:37 | MM ---
Reason for Exam: Screening (asymptomatic). Last mammogram was performed 1 year(s) and 5 month(s) ago. Patient History: Menarche at age 11. First Full-Term at age 21. Left ovary removed at age 51. Right ovary removed at age 51. Hysterectomy at age 51. Postmenopausal. Patient used Estrogen for 1 year. Patient used Progesterone for 1 year. Maternal aunt had breast cancer, age 40. Risk Values: Merline 5 year model risk: 1.5%. NCI Lifetime model risk: 4.5%. Prior Study Comparison: 05/18/2021 Bilateral Screening Mammogram, [facility]. 06/19/2022 Bilateral MG 3D screening mammo w/cad, [facility]. 06/26/2022 Left MG 3D work up w/cad , [facility]. Tissue Density: There are scattered areas of fibroglandular density. Findings: Analyzed By CAD. There is no suspicious group of microcalcifications or new suspicious mass. Overall Assessment: Negative, BI-RAD 1 Management: Screening Mammogram of both breasts in [address] [facility] will attempt to contact patient to return for supplemental views and ultrasound if indicated. Patient should continue monthly self-breast exams. A clinical breast exam by your physician is recommended on an annual basis. This exam should not preclude additional follow-up of suspicious palpable abnormalities. Note on Merline scores and lifetime risk: 1. A Merline score greater than 3% is considered moderate risk. If this is the case, consider specialist referral to assess eligibility for a risk reducing agent. 2. If overall lifetime risk for the development of breast cancer is 20% or higher, the patient may qualify for future screening with alternating mammogram and breast MRI. Electronically signed and approved by: Tim Ibrahim DO
== END | disposition home or self-care (01) ==
LOC: RADMAMWWP 11:23
PROVIDERS: ATTEND Internal Medicine
DX: Z12.31 Encounter for screening mammogram for malignant neoplasm of breast (principal); Z78.0 Asymptomatic menopausal state; Z80.3 Family history of malignant neoplasm of breast
CPT/HCPCS: 77063; 77067

== ENCOUNTER → 2025-02-28 | Outpatient (CLI) | payer MEDICARE | END | disposition home or self-care (01) | LOC: LABWHC1 11:12 | PROVIDERS: ATTEND Internal Medicine Clinical Cardiac Electrophysiology | DX: I49.5 Sick sinus syndrome (principal); I10 Essential (primary) hypertension | CPT/HCPCS: 36415; 84443 ==